=== PATIENT | male | born 1995 | race African-American/Black ===

== ENCOUNTER 2017-03-08 08:54 | Emergency (ER) | payer BC ==
[~2017-03-08] VITALS: Ht 165.1 cm; Wt 61.0 kg
[~2017-03-08 08:54] MED LIST: AMOX500T2 PO; BISA5TAB5; LORA10TA7 PO; LORT5TAB PO; MEDIDATE PO
[2017-03-08 08:55] VITALS: BP 127/80; PULSE 93; RESP 20; TEMP 98.2; O2SAT 100
[2017-03-08] MEDS ORDERED: TAMSULOSIN HCL 0.4 MG CAP PO ONE (09:15)
[2017-03-08] MEDS ORDERED: KETOROLAC TROMETHAMINE 30 MG/ML (IVP) VIAL IVP ONE (09:15)
[2017-03-08] MEDS ORDERED: HYDROmorphone HCL PF 1 MG/ML VIAL IVS ONE (09:15)
[2017-03-08] MEDS ORDERED: ONDANSETRON HCL 4 MG/2 ML VIAL IVP ONE (09:15)
[2017-03-08] MEDS ORDERED: SODIUM CHLORIDE 0.9% FLUSH 10 ML FLUSH IVF PRN (09:15)
[2017-03-08 09:27] VITALS: BP 131/89; PULSE 76; RESP 18; O2SAT 100
--- NOTE | 2017-03-08 09:54 | RADRPT ---
EXAM DATE/TIME: 03/08/2017 09:32 [place] COMPARISON: No previous studies available for comparison. INDICATIONS : Right flank pain since this morning. ORAL CONTRAST: No oral contrast ingested. RADIATION DOSE: 6.97 CTDIvol (mGy) MEDICAL HISTORY : None SURGICAL HISTORY : None. ENCOUNTER: Initial ACUITY: 1 day PAIN SCALE: 10/10 LOCATION: Right flank TECHNIQUE: Volumetric scanning of the abdomen and pelvis was performed. Using automated exposure control and ad justment of the mA and/or kV according to patient size, radiation dose was kept as low as reasonably achievable to obtain optimal diagnostic quality images. DICOM format image data is available electro nically for review and comparison. FINDINGS: LOWER LUNGS: The visualized lower lungs are clear. LIVER: Homogeneous density without lesion. There is no dilation of the biliary tree. No calcified gallston es. SPLEEN: Normal size without lesion. PANCREAS: Within normal limits. KIDNEYS: There is mild to moderate right sided hydroureteronephrosis extending to the right UVJ. 4 mm calcifie d calculus at the right UVJ. Left kidney is normal in appearance. ADRENAL GLANDS: Within normal limits. VASCULAR: There is no aortic aneurysm. BOWEL/MESENTERY: The stomach, small bowel, and colon demonstrate no acute abnormality. There is no free intraperitone al air or fluid. ABDOMINAL WALL: Within normal limits. RETROPERITONEUM: There is no lymphadenopathy. BLADDER: Nearly completely decompressed. REPRODUCTIVE: Within normal limits. INGUINAL: There is no lymphadenopathy or hernia. MUSCULOSKELETAL: Within normal limits for patient age. CONCLUSION: 1. 4 mm calcified right UVJ calculus with mild to moderate right-sided hydroureteronephrosis. Brant Turcios MD on March 08, 2017 at 9:46 Board Certified Radiologist. This report was verified electronically.
[2017-03-08] MEDS ORDERED: SODIUM CHLOR 0.9% 1000 ML INJ 1,000 ML IV ONE (10:15)
[2017-03-08] MEDS ORDERED: MORPHINE SULFATE 4 MG/ML INJ IV PUSH ONE (10:15)
[2017-03-08 10:16] VITALS: RESP 16
--- NOTE | 2017-03-08 10:46 | PD ---
HPI . R Flank Pain Chief Complaint: Flank/Kidney Pain Time Seen by Provider: 09:09 Travel History International Travel<30 days: No Contact w/Intl Traveler<30days: No Traveled to known affect area: No History of Present Illness HPI Pt is a 21yo male who presents to ED with acute R flank pain radiating to RLQ with nausea and vomiting since 0800. Pt describes the pain as excruciating and 10/10 with no modifiers to alleviate/exacerbate. He also complains of difficulty with urination and is fidgeting and writhing in bed at time of exam. Pt had NKDA. Pt was at work prior to this episode of pain. Pt has no significant PMHx and his only PSurgHx is an appendectomy back in May. PFSH Past Medical History Medical History: Denies Significant Hx Asthma: Yes (MILD) Anxiety: No Depression: No Cardiovascular Problems: No Gastrointestinal Disorders: Yes Genitourinary: No Musculoskeletal: No Neurologic: No Psychiatric: No Respiratory: Yes Past Surgical History Abdominal Surgery: Yes (appendectomy 05/2016) Other Surgery: No Social History Alcohol Use: No Tobacco Use: Yes Substance Use: No Allergies-Medications (Allergen,Severity, Reaction): Coded Allergies: No Known Allergies (Verified Allergy, Unknown, 03/08/17) Reported Meds & Prescriptions Reported Meds & Active Scripts Active Ibuprofen 800 Mg Tab 800 Mg PO Q8H PRN Phenergan (Promethazine HCl) 25 Mg Tablet 25 Mg PO Q6H PRN Percocet (Oxycodone-Acetaminophen) 5-325 mg Tab 1 Tab PO Q4H PRN Flomax (Tamsulosin HCl) 0.4 Mg Cap 0.4 Mg PO HS Review of Systems Except as stated in HPI: all other systems reviewed are Neg General / Constitutional: No: Fever, Chills, Weight Gain, Weight Loss, Other Eyes: No: Diploplia, Blurred Vision, Photophobia, Drainage, Redness, Foreign Body Sensation, Pain, Tearing, Blind Spots, Visual changes, Blindness, Other HENT: No: Headaches, Vertigo, Lightheadedness, Sore Throat, Rhinitis, Rhinorrhea, Congestion, Nosebleed, Neck Stiffness, Neck Pain, Masses, Gingival Bleeding, Dental Difficulties, Ear Discharge, Earache, Other Cardiovascular: No: Chest Pain or Discomfort, Palpitations, Irregular Rhythm, Tachycardia, Diaphoresis, Syncope, Dyspnea on exertion, Varicosities, Edema, Cyanosis, Varicosities, Phlebitis, Claudication, Other Respiratory: No: Cough, Shortness of Breath, Wheezing, Sneezing, Orthopnea, Hemoptysis, Stridor, Night Sweats, Pleuritic Pain, Other Gastrointestinal: Positive: Nausea, Vomiting, Abdominal Pain Genitourinary: Positive: Dysuria, Decreased Urinary Output Musculoskeletal: No: Myalgias, Arthralgias, Limited ROM, Weakness, Cramping, Edema, Pain, Atrophy, Other Skin: No Rash, No Itching, No Dryness, No Lumps, No Hives, No Change in Pigmentation, No Change in nails, No Alopecia, No Lesions, No Breast Lumps, No Breast Tenderness, No Breast Swelling, No Other Neurologic: No: Weakness, Dizziness, Syncope, Focal Abnormalities, Coordination Problem, Tremor, Ataxia, Headache, Change in Mentation, Slurred Speech, Paresthesia, Incontinence, Seizures, Sensory Disturbance, Other Psychiatric: No: Anxiety, Depression, Suicidal Ideations, Disorder of Thought, Mood Disorder, Substance Abuse, Homicidal Ideation, Other Endocrine: No: Heat Intolerance, Cold Intolerance, Polyuria, Polydipsia, Other Hematologic/Lymphatic: No: Easy Bruising, Lymph Node Enlargement, Other Physical Exam Narrative GENERAL: Alert and Oriented but in moderate distress, writhing in pain in bed at time of exam. SKIN: Warm and dry. Good turgor. Good color. HEAD: Normocephalic/atraumatic. EYES: Pupils are equal. Extraocular movements are intact. CV: RRR with normal Heart sounds. RESP: CTA bilat with good and equal breath sounds and aeration in all lung thakkar. ABDOMEN: soft, TTP on RUQ and RLQ with marked tenderness to flank region. R CVA tenderness. mild bladder distension was noted. no rebound. bowel sounds present in all 4 quadrants. PSYCH: Appropriate mood and Affect. Data Data Last Documented VS Vital Signs Date Time Temp Pulse Resp B/P (MAP) Pulse Ox O2 Delivery O2 Flow Rate FiO2 03/08/17 10:16 16 03/08/17 09:27 76 131/89 (103) 100 Room Air 03/08/17 08:55 98.2 Orders Orders Urinalysis - C+S If Indicated (03/08/17 09:09) Ct Abd/Pel W/O Iv Contrast (03/08/17 09:09) Iv Access Insert/Monitor (03/08/17 09:09) Ketorolac Inj (Toradol Inj) (03/08/17 09:15) Ondansetron Inj (Zofran Inj) (03/08/17 09:15) Sodium Chloride 0.9% Flush (Ns Flush) (03/08/17 09:15) Hydromorphone Pf Inj (Dilaudid Pf Inj) (03/08/17 09:15) Tamsulosin (Flomax) (03/08/17 09:15) Sodium Chlor 0.9% 1000 Ml Inj (Ns 1000 M (03/08/17 10:15) Morphine Inj (Morphine Inj) (03/08/17 10:15) Ed Discharge Order (03/08/17 11:04) MDM Medical Decision Making Medical Screen Exam Complete: Yes Emergency Medical Condition: Yes Differential Diagnosis Differential diagnosis of flank pain includes but is not limited to kidney stone , pyelonephritis, musculoskeletal pain, PE Narrative Course Patient presents with the acute onset of right flank pain. He looks like a typical kidney stone. He is writhing about in pain. Last Impressions Abdomen/Pelvis CT 03/08/17 09 Signed Impressions: Service Date/Time: Wednesday, March 08, 2017 09:32 - CONCLUSION: 1. 4 mm calcified right UVJ calculus with mild to moderate right-sided hydroureteronephrosis. Brant Turcios MD Patient is now pain-free. Diagnosis Primary Impression: Kidney stone Patient Instructions: General Instructions, Kidney Stones (DC) Med/Other Pt SpecificInfo: Prescription(s) given Scripts Ibuprofen (Ibuprofen) 800 Mg Tab 800 MG PO Q8H Y for Pain/Inflammation, #60 TAB 0 Refills Prov: Sarah Jung MD 03/08/17 Promethazine (Phenergan) 25 Mg Tablet 25 MG PO Q6H Y for NAUSEA OR VOMITING, #12 TAB 0 Refills Prov: Sarah Jung MD 03/08/17 Oxycodone-Acetaminophen (Percocet) 5-325 mg Tab 1 TAB PO Q4H Y for PAIN, #12 TAB 0 Refills Prov: Sarah Jung MD 03/08/17 Tamsulosin (Flomax) 0.4 Mg Cap 0.4 MG PO HS for Manage Prostate Problems, #30 CAP 0 Refills Prov: Sarah Jung MD 03/08/17 Disposition: 01 DISCHARGE HOME Condition: Stable Sarah Jung MD Mar 08, 2017 10:46
[2017-03-08] MEDS ORDERED: IBUP1TAB7 PO (11:03)
[2017-03-08] MEDS ORDERED: PROM25TA10 PO (11:03)
[2017-03-08] MEDS ORDERED: PERC5TAB12 PO (11:03)
[2017-03-08] MEDS ORDERED: TAMS5CAP PO (11:03)
[2017-03-08 11:15] VITALS: BP 120/78; TEMP 97.8
== END 2017-03-08 11:15 | disposition home or self-care (01) ==
LOC: NEPE 08:54
DX: N13.2 Hydronephrosis with renal and ureteral calculous obstruction (principal); J45.909 Unspecified asthma, uncomplicated; Z72.0 Tobacco use
CPT/HCPCS: 74176; 96361; 96374; 96375; 99285; J1170; J1885; J2270; J2405; J7030